=== PATIENT | female | born 1965 | race African-American/Black ===

== ENCOUNTER 2021-03-08 06:41 | Day surgery (SDC) | payer BC ==
[2021-03-07 14:58] VITALS: BMI 51.7
[2021-03-08] MEDS ORDERED: LIDOCAINE HCL/PF 2% SDV 5ML VIAL ONE (07:30)
[2021-03-08] MEDS ORDERED: PROPOFOL 20 ML ONE ×3 (07:30)
[2021-03-08 09:14] VITALS: BP 122/65; PULSE 76; TEMP 98
== END 2021-03-08 09:22 | disposition home or self-care (01) ==
LOC: FASU 06:41
PROVIDERS: ATTEND Internal Medicine Gastroenterology
PROC: 0DJD8ZZ Inspection of Lower Intestinal Tract, Via Natural or Artificial Opening Endoscopic (ICD-10-PCS; principal; 2021-03-08 08:20)
DX: Z12.11 Encounter for screening for malignant neoplasm of colon (principal); K57.30 Diverticulosis of large intestine without perforation or abscess without bleeding